=== PATIENT | male | born 2005 | race African-American/Black ===

== ENCOUNTER 2023-07-29 19:05 | Emergency (ER) | payer OTHER, SELFPAY ==
[2023-07-29 19:10] VITALS: BP 123/85; PULSE 66; RESP 18; TEMP 37; O2SAT 99; BMI 20.3
--- NOTE | 2023-07-29 19:46 | ED.GENADULT ---
[facility] - General Adult General Date Seen: 07/29/23 Chief complaint: Skin/Abscess/Foreign Body Stated complaint: piece of wood in eye Time Seen by Provider: 07/29/23 19:07 Source: patient Mode of arrival: ambulatory Limitations: no limitations History of Present Illness HPI narrative: Patient is a 17-year-old male presenting to emergency department for left eye pain. He states he was playing disc golf when he suddenly felt something in his left eye. Has been very uncomfortable if feels like it is in his lower eye. The with denies having symptoms like this before. Is unable to open the left eye secondary to pain. No other injuries noted. No other concerns at this time. Related Data Home Medications Medication Instructions Recorded Confirmed No Known Home Medications 07/29/23 07/29/23 Allergies Allergy/AdvReac Type Severity Reaction Status Date / Time No Known Drug Allergies Allergy Verified 07/29/23 19:11 Review of Systems Narrative: Pertinent systems reviewed and are negative unless stated in HPI PFS PFS Medical History (Updated 07/29/23 @ 19:53 by Syd Gonzalez DO) No significant past medical history Surgical History (Updated 07/29/23 @ 19:12 by Tank Dan RN) No significant past surgical history Social History Smoking Status: Never smoker Second hand tobacco smoke exposure: No How often do you have a drink containing alcohol: never AUDIT-C Alcohol total score: 0 Non-prescribed substance use: denies use Exam Narrative: Exam Narrative: Const: Well-nourished, Well-developed, in mild distress Eyes: PERRL, left eye conjunctival injection, is corneal abrasion seen in the left lower cornea. No foreign body noted on exam HENT: Atraumatic external nose and ears. Moist mucous membranes. MSK:Extremities w/o deformity, Normal Active ROM Skin: Warm, Dry. No rashes or lesions. Neuro: Normal Muscle tone, No focal neurological deficits. Psych: Awake, Alert, & Oriented x3. Appropriate mood and affect. Const: Vital Signs, click to edit/add: Vital Signs - 24 hr 07/29/23 19:10 Temperature 98.6 F Pulse Rate [Right Pulse Oximeter] 66 Respiratory Rate 18 Blood Pressure [Ri ght Upper Arm] 123/85 Pulse Oximetry 99 Oxygen Delivery Me thod Room Air Course Vital Signs Vital signs: Initial Vital Signs Temperature 98.6 F 07/29/23 19:10 Temperature Source Temporal Artery Scan 07/29/23 19:10 Pulse Rate 66 07/29/23 19:10 Respiratory Rate 18 07/29/23 19:10 Blood Pressure 123/85 07/29/23 19:10 Blood Pressure Mean 97 07/29/23 19:10 Blood Pressure Position Sitting 07/29/23 19:10 Pulse Oximetry 99 07/29/23 19:10 Oxygen Delivery Method Room Air 07/29/23 19:10 Vital Signs Temperature 98.6 F 07/29/23 19:10 Pulse Rate 66 07/29/23 19:10 Respiratory Rate 18 07/29/23 19:10 Blood Pressure 123/85 07/29/23 19:10 Pulse Oximetry 99 07/29/23 19:10 Oxygen Delivery Method Room Air 07/29/23 19:10 Temperature 98.6 F 07/29/23 19:10 Pulse Rate 66 07/29/23 19:10 Respiratory Rate 18 07/29/23 19:10 Blood Pressure 123/85 07/29/23 19:10 Pulse Oximetry 99 07/29/23 19:10 Oxygen Delivery Method Room Air 07/29/23 19:10 Medical Decision Making MDM Narrative Medical decision making narrative: Patient is a 17-year-old male presenting for left eye pain. I put anesthetic drops in the left eye to better evaluated. After this his symptoms improved significantly and he does states there is some mild discomfort in his lower left eye. After the for worsening eye drops were placed the does appear to be a corneal abrasion seen on exam. I used a Q-tip to help me evaluate under the eyelids and no foreign body was seen. Is considering symptoms resolved with the eyedrops this seems most likely to be all related to the corneal abrasion. I will prescribe erythromycin ointment to help with discomfort. He does not wear any contacts. No other concerns. He will be discharged. Discharge Plan Discharge Clinical Impression: Abrasion, corneal Qualifiers: Encounter type: initial encounter Laterality: left Qualified Code(s): S05.02XA - Injury of conjunctiva and corneal abrasion without foreign body, left eye, initial encounter Patient Disposition: Home, Self-Care Condition: Improved Instructions: Corneal Abrasion (DC) Additional Instructions: Use the erythromycin ointment up to 6 times a day as needed for comfort. Take Tylenol and ibuprofen for pain. Symptoms should start resolving the next day or 2. Return to emergency department for new or worsening symptoms. Prescriptions: No Action No Known Home Medications Stand Alone Forms: [facility] Info Instructions
[2023-07-29] MEDS: FLUORESCEIN SODIUM TOPICAL STRIP 1 STRIP EYE-LEFT (19:56)
[2023-07-29] MEDS: ERYTHROMYCIN 1 GM TUBE 1 APPLIC EYE-BOTH (20:03)
[2023-07-29 20:04] VITALS: BP 118/75; PULSE 68; RESP 18; TEMP 37; O2SAT 99
== END 2023-07-29 20:06 | disposition home or self-care (01) ==
PROVIDERS: Emergency Provider Student in an Organized Health Care Education/Training Program
DX: S05.02XA Injury of conjunctiva and corneal abrasion without foreign body, left eye, initial encounter (principal)
CPT/HCPCS: 99282; 99283; A9270